=== PATIENT | female | born 1935 | race African-American/Black ===

== ENCOUNTER 2018-02-01 18:46 | Inpatient (IN) | payer MEDICARE, BC ==
[~2018-02-01] VITALS: Ht 162.6 cm; Wt 59.0 kg
[2018-02-02] VITALS (24 sets, daily range): BP systolic 84–152; BP diastolic 28–89
[2018-02-02 00:08] LABS: HEMATOCRIT. 35.6 % (36.0-48.0); HEMOGLOBIN. 12.3 g/dL (12.0-16.0); MEAN CORPUSCULAR HEMOGLOBIN 34.3 pg (28.0-32.0); MEAN CORPUSCULAR VOLUME 99.1 fL (81.0-99.0); MEAN PLATELET VOLUME 7.9 fl (7.4-10.4); PLATELET 266 x1000/uL (130-400); RED BLOOD CELL COUNT 3.59 mill/uL (4.2-5.4); RED CELL DISTRIBUTION WIDTH 14.6 % (11.6-14.6)
[2018-02-02 00:17] LABS: CHLORIDE 109 mEq/L (98-107)
[2018-02-02 00:18] LABS: PROTHROMBIN TIME 9.9 sec (9.1-11.1)
[2018-02-02 00:49] LABS: PLATELET ESTIMATE NORMAL
[2018-02-02] MEDS ORDERED: ENALAPRIL 2.5MG/2ML VIAL 2ML IV ONE (01:15)
[2018-02-02] MEDS ORDERED: LEVETIRACETAM 500MG PREMIX 100 ML IV ONE (01:15)
[2018-02-02] MEDS ORDERED: ACETAMINOPHEN 325MG TABLET PO ONE (02:15)
[2018-02-02] MEDS ORDERED: HYDROCODONE/ACETAMINOPHEN 5/325MG TABLET PO PRN (07:00)
[2018-02-02] MEDS ORDERED: ONDANSETRON HCL 4MG/2ML INJ IV PRN (07:00)
[2018-02-02] MEDS: DEXT 5%/0.45% NACL 1000ML 1,000 ML IV SCH (08:08)
[2018-02-02] MEDS ORDERED: NICARDIPINE 50 MG in SODIUM CHLORIDE 0.9% 230 ML IV PRN (08:30)
[2018-02-02] MEDS ORDERED: AMLODIPINE 5MG TABLET PO SCH (09:00)
[2018-02-02] MEDS ORDERED: LOSA50TA20 PO (09:42)
[2018-02-02] MEDS ORDERED: ZIAC10 PO (09:42)
[2018-02-02] MEDS ORDERED: LORA1TAB PO (09:45)
[2018-02-02] MEDS ORDERED: LENA2.5C PO (09:45)
[2018-02-02] MEDS ORDERED: ATOR40TA70 PO (09:45)
[2018-02-02] MEDS: LEVETIRACETAM 500 MG in SODIUM CHLORIDE 0.9% 100 ML IV SCH ×2 (09:52→20:35)
[2018-02-02 10:41] LABS: HEMOGLOBIN. 10.9 g/dL (12.0-16.0); MEAN CORPUSCULAR HEMOGLOBIN 33.7 pg (28.0-32.0); MEAN CORPUSCULAR VOLUME 98.7 fL (81.0-99.0); PLATELET 238 x1000/uL (130-400); RED BLOOD CELL COUNT 3.25 mill/uL (4.2-5.4)
[2018-02-02] MEDS: LOSARTAN POTASSIUM 50 MG TABLET PO SCH (11:00)
[2018-02-02] MEDS: LORAZEPAM 1MG TABLET PO SCH (11:00)
[2018-02-02 11:10] LABS: CHLORIDE 112 mEq/L (98-107)
[2018-02-02 13:48] LABS: PLATELET ESTIMATE NORMAL
[2018-02-02] MEDS ORDERED: GADOBENATE DIMEGLUMINE 529 MG/ML 10ML IV ONE (17:42)
[2018-02-02] MEDS ORDERED: ATORVASTATIN CALCIUM 40MG TABLET PO SCH (21:00)
[2018-02-03] VITALS: BP 116/90
[2018-02-03 04:00] VITALS: BP 100/48
[2018-02-03 08:00] VITALS: BP 132/50
[2018-02-03] MEDS: LOSARTAN POTASSIUM 50 MG TABLET PO SCH (08:32)
[2018-02-03] MEDS: LORAZEPAM 1MG TABLET PO SCH (08:32)
[2018-02-03] MEDS: LEVETIRACETAM 500 MG in SODIUM CHLORIDE 0.9% 100 ML IV SCH (08:32)
[2018-02-03] MEDS: DEXT 5%/0.45% NACL 1000ML 1,000 ML IV SCH (08:47)
[2018-02-03] MEDS ORDERED: MAGNESIUM HYDROXIDE 400MG/5ML 30ML UDC PO PRN (10:30)
[2018-02-03] MEDS ORDERED: DOCUSATE SODIUM 100MG CAPSULE PO SCH (11:23)
[2018-02-03 12:00] VITALS: BP 123/46
[2018-02-03] MEDS ORDERED: DEXAMETHASONE 4MG/ML 1ML VIAL IV SCH (12:00)
[2018-02-03 12:28] VITALS: BP 123/46
[2018-02-03 14:08] VITALS: BP 123/46
== END 2018-02-03 15:20 | disposition home or self-care (01) | DRG 54 ==
LOC: ER 18:46 → EDBEDREQDT 02-02 01:14 → EDBEDREQ 02-02 01:14 → EDBEDREQTM 02-02 01:14 → EDBEDREQSVC 02-02 01:14 → MICUSO 02-02 02:08 → EDBEDREQTM 02-02 02:09 → EDBEDREQ 02-02 02:09 → EDBEDREQSVC 02-02 02:09 → ENRESERV 02-02 02:44 → 6EST 02-02 21:30
PROVIDERS: ADMIT Hospitalist; ATTEND Hospitalist
DX: D32.9 Benign neoplasm of meninges, unspecified (principal); S06.1X0A Traumatic cerebral edema without loss of consciousness, initial encounter; C90.01 Multiple myeloma in remission; D80.1 Nonfamilial hypogammaglobulinemia; E78.00 Pure hypercholesterolemia, unspecified; K59.00 Constipation, unspecified; S05.12XA Contusion of eyeball and orbital tissues, left eye, initial encounter; G93.89 Other specified disorders of brain; E78.5 Hyperlipidemia, unspecified; I10 Essential (primary) hypertension; J44.9 Chronic obstructive pulmonary disease, unspecified; Z82.49 Family history of ischemic heart disease and other diseases of the circulatory system; Z90.710 Acquired absence of both cervix and uterus; W01.0XXA Fall on same level from slipping, tripping and stumbling without subsequent striking against object, initial encounter; Y93.89 Activity, other specified; Y92.89 Other specified places as the place of occurrence of the external cause; Y99.8 Other external cause status
CPT/HCPCS: 36415; 70486; 70553; 71045; 73562; 80048; 83880; 84484; 93005; 96365; 99291; A9577; J1100; J1953; J3490; J7050

== ENCOUNTER 2021-09-25 12:19 | Inpatient (IN) | payer MEDICARE, BC ==
[~2021-09-25] VITALS: Ht 162.6 cm; Wt 59.0 kg
[~2021-09-25 12:19] MED LIST: ATOR40TA70 PO; BIMA2.5D4 EACHEYE; CYAN100096 PO; DEXA4TAB69 PO; LENA10CA PO; LENA2.5C PO; LORA1TAB PO; LOSA50TA41 PO; ZIAC10 PO
[2021-09-25 13:15] LABS: BASOPHILS % 0.4 % (0.0-2.0); EOSINOPHILS % 0.1 % (0.0-5.0); HEMATOCRIT. 37.3 % (36.0-48.0); HEMOGLOBIN. 12.6 g/dL (12.0-16.0); LYMPHOCYTES % 27.3 % (20.0-50.0); MEAN CORPUSCULAR HEMOGLOBIN 33.4 pg (28.0-32.0); MEAN CORPUSCULAR VOLUME 98.6 fL (81.0-99.0); MEAN PLATELET VOLUME 7.8 fl (7.4-10.4); MONOCYTES % 9.1 % (2.0-8.0); NEUTROPHILS % 63.1 % (40.0-76.0); PLATELET 280 x1000/uL (130-400); RED BLOOD CELL COUNT 3.78 mill/uL (4.2-5.4); RED CELL DISTRIBUTION WIDTH 12.7 % (11.6-14.6)
[2021-09-25 13:24] LABS: CHLORIDE 86 mEq/L (98-107)
[2021-09-25 13:40] LABS: ETHANOL BLOOD < 10 mg/dL
[2021-09-25] MEDS ORDERED: AMLODIPINE 5MG TABLET PO NR (17:30)
[2021-09-25 19:25] VITALS: BP 178/82
[2021-09-25] MEDS ORDERED: DEXT 5%/0.45% NACL 1000ML 1,000 ML IV SCH (19:30)
[2021-09-25 20:00] VITALS: BP 142/64
[2021-09-25] MEDS ORDERED: ACETAMINOPHEN 325MG TABLET PO PRN (21:15)
[2021-09-25] MEDS ORDERED: MAGNESIUM/ALUMINUM HYDROXIDE/SIMETHICONE 30ML UDC PO PRN (21:15)
[2021-09-25] MEDS ORDERED: ONDANSETRON HCL 4MG/2ML INJ IV PRN (21:15)
[2021-09-25] MEDS ORDERED: ZOLPIDEM TARTRATE 5MG TABLET PO PRN (21:15)
[2021-09-25] MEDS ORDERED: IPRATROPIUM/ALBUTEROL 0.5-3(2.5)MG/3ML NEB HHN PRN (21:15)
[2021-09-25] MEDS ORDERED: NA PHOS,M-B/NA PHOS,DI-BA ENEMA 118ML PR PRN (21:15)
[2021-09-25] MEDS ORDERED: DIPHENHYDRAMINE 50MG/ML VIAL IV PRN (21:15)
[2021-09-25] MEDS: DEXT 5%/0.9% NACL 1,000 ML IV SCH (22:31)
[2021-09-26] VITALS: BP 146/63
[2021-09-26 04:00] VITALS: BP 155/57
[2021-09-26 08:00] VITALS: BP 135/55
[2021-09-26] MEDS ORDERED: CLONIDINE 0.1MG TABLET PO PRN (11:45)
[2021-09-26 12:00] VITALS: BP 118/61
[2021-09-26] MEDS: LOSARTAN POTASSIUM 50 MG TABLET PO SCH (12:30)
[2021-09-26 16:00] VITALS: BP 123/48
[2021-09-26] MEDS: DEXT 5%/0.9% NACL 1,000 ML IV SCH (17:15)
[2021-09-26 20:00] VITALS: BP 154/57
[2021-09-26] MEDS: ATORVASTATIN CALCIUM 40MG TABLET PO SCH (20:57)
[2021-09-26 21:42] LABS: CHLORIDE 96 mEq/L (98-107)
[2021-09-26 21:50] LABS: HDL CHOLESTEROL 85 mg/dL (40-59); LDL CHOLESTEROL 167 mg/dL (5-100)
[2021-09-27] VITALS: BP 121/83
[2021-09-27 04:00] VITALS: BP 120/59
[2021-09-27 07:11] LABS: BASOPHILS % 0.3 % (0.0-2.0); EOSINOPHILS % 0.5 % (0.0-5.0); HEMATOCRIT. 33.8 % (36.0-48.0); HEMOGLOBIN. 11.5 g/dL (12.0-16.0); LYMPHOCYTES % 28.8 % (20.0-50.0); MEAN CORPUSCULAR HEMOGLOBIN 33.5 pg (28.0-32.0); MEAN CORPUSCULAR VOLUME 98.9 fL (81.0-99.0); MEAN PLATELET VOLUME 7.9 fl (7.4-10.4); MONOCYTES % 13.5 % (2.0-8.0); NEUTROPHILS % 56.9 % (40.0-76.0); PLATELET 239 x1000/uL (130-400); RED BLOOD CELL COUNT 3.42 mill/uL (4.2-5.4)
[2021-09-27 07:27] LABS: CARCINO EMBRYONIC ANTIGEN 1.4 ng/ml; CHLORIDE 99 mEq/L (98-107)
[2021-09-27 07:33] LABS: TOTAL IRON BINDING CAPACITY 263 ug/dL (250-450)
[2021-09-27 07:40] LABS: FOLIC ACID (FOLATE) SERUM 19.4 ng/mL (>5.38)
[2021-09-27 08:00] VITALS: BP 139/60
[2021-09-27] MEDS: LOSARTAN POTASSIUM 50 MG TABLET PO SCH (08:57)
[2021-09-27] MEDS: PANTOPRAZOLE SODIUM 40 MG/VIAL IV SCH (09:34)
[2021-09-27 12:00] VITALS: BP 133/54
[2021-09-27 16:00] VITALS: BP 127/68
[2021-09-27] MEDS: DEXT 5%/0.9% NACL 1,000 ML IV SCH (18:04)
[2021-09-27 18:49] LABS: CLARITY URINE CLEAR (CLEAR); COLOR URINE YELLOW (YELLOW); KETONES URINE NEGATIVE (NEGATIVE); LEUKOCYTE ESTERASE URINE NEGATIVE (NEGATIVE); NITRITE URINE NEGATIVE (NEGATIVE); OCCULT BLOOD URINE TRACE (NEGATIVE); PH URINE 5.5 (4.5-8.0); PROTEIN URINE NEGATIVE (NEGATIVE); SPECIFIC GRAVITY URINE 1.005 (1.005-1.030); UROBILINOGEN URINE 0.2 E.U./dL (0.2-1.0)
[2021-09-27 19:04] LABS: *AMPHETAMINES SCREEN URINE NEGATIVE (NEGATIVE); *BARBITURATES SCREEN URINE NEGATIVE (NEGATIVE); *BENZODIAZEPINES SCREEN URINE NEGATIVE (NEGATIVE); *COCAINE SCREEN URINE NEGATIVE (NEGATIVE); CANNABINOID URINE SCREEN NEGATIVE (NEGATIVE); METHADONE URINE SCREEN NEGATIVE (NEGATIVE); OPIATES URINE SCREEN NEGATIVE (NEGATIVE); PHENCYCLIDINE URINE SCREEN NEGATIVE (NEGATIVE)
[2021-09-27 20:00] VITALS: BP 129/53
[2021-09-27] MEDS: ATORVASTATIN CALCIUM 40MG TABLET PO SCH (20:15)
[2021-09-28] VITALS: BP 154/55
[2021-09-28 04:00] VITALS: BP 165/55
[2021-09-28 06:48] LABS: BASOPHILS % 0.4 % (0.0-2.0); EOSINOPHILS % 0.4 % (0.0-5.0); HEMATOCRIT. 31.6 % (36.0-48.0); HEMOGLOBIN. 10.8 g/dL (12.0-16.0); LYMPHOCYTES % 33.5 % (20.0-50.0); MEAN CORPUSCULAR HEMOGLOBIN 33.9 pg (28.0-32.0); MEAN CORPUSCULAR VOLUME 98.9 fL (81.0-99.0); MEAN PLATELET VOLUME 7.9 fl (7.4-10.4); MONOCYTES % 12.3 % (2.0-8.0); NEUTROPHILS % 53.4 % (40.0-76.0); PLATELET 229 x1000/uL (130-400); RED BLOOD CELL COUNT 3.19 mill/uL (4.2-5.4); RED CELL DISTRIBUTION WIDTH 12.9 % (11.6-14.6)
[2021-09-28 06:55] LABS: CHLORIDE 103 mEq/L (98-107)
[2021-09-28 08:00] VITALS: BP 167/56
[2021-09-28] MEDS: LOSARTAN POTASSIUM 50 MG TABLET PO SCH (08:16)
[2021-09-28] MEDS: PANTOPRAZOLE SODIUM 40 MG/VIAL IV SCH (09:24)
[2021-09-28 12:00] VITALS: BP 162/53
[2021-09-28] MEDS ORDERED: GADOTERATE MEGLUMINE 5 MMOL/10 ML VIAL IV ONE (13:57)
[2021-09-28 16:00] VITALS: BP 135/60
[2021-09-28 20:00] VITALS: BP 138/55
[2021-09-28] MEDS: ATORVASTATIN CALCIUM 40MG TABLET PO SCH (21:14)
[2021-09-29] VITALS: BP 171/57
[2021-09-29 04:00] VITALS: BP 182/63
[2021-09-29] MEDS: DEXT 5%/0.9% NACL 1,000 ML IV SCH (05:24)
[2021-09-29 06:41] LABS: BASOPHILS % 0.7 % (0.0-2.0); EOSINOPHILS % 0.7 % (0.0-5.0); HEMATOCRIT. 30.4 % (36.0-48.0); HEMOGLOBIN. 10.5 g/dL (12.0-16.0); LYMPHOCYTES % 27.3 % (20.0-50.0); MEAN CORPUSCULAR HEMOGLOBIN 34.3 pg (28.0-32.0); MEAN CORPUSCULAR VOLUME 99.3 fL (81.0-99.0); MONOCYTES % 12.4 % (2.0-8.0); NEUTROPHILS % 58.9 % (40.0-76.0); PLATELET 230 x1000/uL (130-400); RED BLOOD CELL COUNT 3.06 mill/uL (4.2-5.4)
[2021-09-29 06:46] LABS: CHLORIDE 104 mEq/L (98-107)
[2021-09-29 08:00] VITALS: BP 170/62
[2021-09-29] MEDS: LOSARTAN POTASSIUM 50 MG TABLET PO SCH (08:57)
[2021-09-29] MEDS: PANTOPRAZOLE SODIUM 40 MG/VIAL IV SCH (10:39)
[2021-09-29 12:00] VITALS: BP 155/50
[2021-09-29] MEDS: DEXAMETHASONE 4MG TABLET PO SCH (12:03)
[2021-09-29 16:00] VITALS: BP 145/60
[2021-09-29 20:00] VITALS: BP 108/75
[2021-09-29] MEDS: ATORVASTATIN CALCIUM 40MG TABLET PO SCH (21:33)
[2021-09-30] VITALS: BP 157/71
[2021-09-30] MEDS: DEXT 5%/0.9% NACL 1,000 ML IV SCH (01:30)
[2021-09-30 04:00] VITALS: BP 145/63
[2021-09-30 08:00] VITALS: BP 142/58
[2021-09-30 08:00] LABS: BASOPHILS % 0.1 % (0.0-2.0); HEMATOCRIT. 32.5 % (36.0-48.0); HEMOGLOBIN. 11.1 g/dL (12.0-16.0); LYMPHOCYTES % 24.6 % (20.0-50.0); MEAN CORPUSCULAR HEMOGLOBIN 33.8 pg (28.0-32.0); MEAN CORPUSCULAR VOLUME 98.6 fL (81.0-99.0); MEAN PLATELET VOLUME 7.9 fl (7.4-10.4); MONOCYTES % 7.3 % (2.0-8.0); PLATELET 263 x1000/uL (130-400); RED BLOOD CELL COUNT 3.29 mill/uL (4.2-5.4); RED CELL DISTRIBUTION WIDTH 12.7 % (11.6-14.6)
[2021-09-30 08:16] LABS: CHLORIDE 105 mEq/L (98-107)
[2021-09-30] MEDS: LOSARTAN POTASSIUM 50 MG TABLET PO SCH (08:46)
[2021-09-30] MEDS: PANTOPRAZOLE SODIUM 40 MG/VIAL IV SCH (08:46)
[2021-09-30] MEDS: DEXAMETHASONE 4MG TABLET PO SCH (11:42)
[2021-09-30 12:00] VITALS: BP 148/60
[2021-09-30 16:00] VITALS: BP 145/62
[2021-09-30 17:17] VITALS: BP 145/62
== END 2021-09-30 18:48 | DRG 640 ==
LOC: ER 12:19 → 6EST 15:43 → EDBEDREQ 15:54 → EDBEDREQSVC 15:54 → ENRESERV 16:01
PROVIDERS: ADMIT Specialist; ATTEND Specialist
DX: E86.0 Dehydration (principal); G93.41 Metabolic encephalopathy; K86.2 Cyst of pancreas; C90.01 Multiple myeloma in remission; D32.0 Benign neoplasm of cerebral meninges; E87.1 Hypo-osmolality and hyponatremia; K86.9 Disease of pancreas, unspecified; I10 Essential (primary) hypertension; D64.9 Anemia, unspecified; E78.1 Pure hyperglyceridemia; E78.5 Hyperlipidemia, unspecified; K57.30 Diverticulosis of large intestine without perforation or abscess without bleeding; M51.36 Other intervertebral disc degeneration, lumbar region; R19.7 Diarrhea, unspecified; N28.1 Cyst of kidney, acquired; R62.7 Adult failure to thrive; R63.0 Anorexia; R29.6 Repeated falls; K59.00 Constipation, unspecified; Z68.22 Body mass index [BMI] 22.0-22.9, adult; Z88.0 Allergy status to penicillin; Z90.710 Acquired absence of both cervix and uterus; Z79.899 Other long term (current) drug therapy
CPT/HCPCS: 36415; 70553; 71045; 74176; 74183; 76700; 80048; 80053; 80061; 80076; 80305; 80320; 81003; 82105; 82378; 82533; 82607; 82728; 82746; 83540; 83550; 83605; 83930; 84443; 84484; 85025; 86301; 86304; 93005; 95816; 97110; 97116; 97162; 97165; 97166; 97535; 99285; A9577; C9113; J7042; J8540; G0480

== ENCOUNTER 2021-09-30 18:56 | Inpatient (IN) | payer MEDICARE, BC ==
[~2021-09-30] VITALS: Ht 162.6 cm; Wt 59.0 kg
[2021-09-30 19:30] VITALS: BP 171/64
[2021-09-30 20:00] VITALS: BP 171/64
[2021-09-30] MEDS ORDERED: ONDANSETRON HCL 4MG TABLET PO PRN (22:00)
[2021-09-30] MEDS ORDERED: NA PHOS,M-B/NA PHOS,DI-BA ENEMA 118ML PR PRN (22:00)
[2021-09-30] MEDS ORDERED: CLONIDINE 0.1MG TABLET PO PRN (22:00)
[2021-09-30] MEDS ORDERED: DIPHENHYDRAMINE 25MG CAPSULE PO PRN (22:00)
[2021-09-30] MEDS ORDERED: MAGNESIUM/ALUMINUM HYDROXIDE/SIMETHICONE 30ML UDC PO PRN (22:00)
[2021-09-30] MEDS ORDERED: ZOLPIDEM TARTRATE 5MG TABLET PO PRN (22:00)
[2021-09-30] MEDS ORDERED: ACETAMINOPHEN 325MG TABLET PO PRN (22:00)
[2021-09-30] MEDS ORDERED: IPRATROPIUM/ALBUTEROL 0.5-3(2.5)MG/3ML NEB HHN PRN (22:00)
[2021-09-30] MEDS: ATORVASTATIN CALCIUM 40MG TABLET PO SCH (22:53)
[2021-10-01] MEDS: PANTOPRAZOLE 40MG DR TABLET PO SCH (06:11)
[2021-10-01] MEDS ORDERED: PANTOPRAZOLE 40MG DR TABLET PO NR (07:00)
[2021-10-01 08:00] VITALS: BP 147/70
[2021-10-01] MEDS: LOSARTAN POTASSIUM 50 MG TABLET PO SCH (09:24)
[2021-10-01] MEDS: DEXAMETHASONE 4MG TABLET PO SCH (11:00)
[2021-10-01 12:00] VITALS: BP 147/70
[2021-10-01 16:00] VITALS: BP 147/70
[2021-10-01 20:00] VITALS: BP 136/52
[2021-10-01] MEDS ORDERED: ATORVASTATIN CALCIUM 40MG TABLET PO SCH (21:00)
[2021-10-01] MEDS: LEVETIRACETAM 250MG TABLET PO SCH (21:07)
[2021-10-01] MEDS: ATORVASTATIN CALCIUM 40MG TABLET PO SCH (21:07)
[2021-10-02] MEDS: PANTOPRAZOLE 40MG DR TABLET PO SCH (06:08)
[2021-10-02 06:15] LABS: BASOPHILS % 0.1 % (0.0-2.0); EOSINOPHILS % 0.2 % (0.0-5.0); HEMATOCRIT. 29.7 % (36.0-48.0); HEMOGLOBIN. 10.2 g/dL (12.0-16.0); LYMPHOCYTES % 31.4 % (20.0-50.0); MEAN CORPUSCULAR VOLUME 98.6 fL (81.0-99.0); MEAN PLATELET VOLUME 7.7 fl (7.4-10.4); MONOCYTES % 11.5 % (2.0-8.0); NEUTROPHILS % 56.8 % (40.0-76.0); PLATELET 232 x1000/uL (130-400); RED BLOOD CELL COUNT 3.01 mill/uL (4.2-5.4); RED CELL DISTRIBUTION WIDTH 12.5 % (11.6-14.6)
[2021-10-02 06:43] LABS: CHLORIDE 104 mEq/L (98-107)
[2021-10-02 07:02] LABS: HDL CHOLESTEROL 80 mg/dL (40-59); LDL CHOLESTEROL 86 mg/dL (5-100)
[2021-10-02 08:00] VITALS: BP 172/68
[2021-10-02] MEDS ORDERED: POTASSIUM CHLORIDE 20MEQ TABLET SR PO NR (09:15)
[2021-10-02] MEDS: LOSARTAN POTASSIUM 50 MG TABLET PO SCH (09:29)
[2021-10-02] MEDS: LEVETIRACETAM 250MG TABLET PO SCH (09:29)
[2021-10-02] MEDS: DEXAMETHASONE 4MG TABLET PO SCH (12:38)
[2021-10-02 14:58] VITALS: BP 141/75
[2021-10-03] MEDS ORDERED: FAMOTIDINE 20MG TABLET PO SCH (09:00)
== END 2021-10-02 15:40 | disposition left against medical advice (07) | DRG 55 ==
PROVIDERS: ADMIT Psychiatry & Neurology Neurology; ATTEND Specialist
DX: D32.0 Benign neoplasm of cerebral meninges (principal); C90.00 Multiple myeloma not having achieved remission; C25.3 Malignant neoplasm of pancreatic duct; E87.1 Hypo-osmolality and hyponatremia; D64.9 Anemia, unspecified; R29.6 Repeated falls; K57.30 Diverticulosis of large intestine without perforation or abscess without bleeding; K38.8 Other specified diseases of appendix; I10 Essential (primary) hypertension; M51.36 Other intervertebral disc degeneration, lumbar region; E78.1 Pure hyperglyceridemia; K63.5 Polyp of colon; E78.5 Hyperlipidemia, unspecified; M17.11 Unilateral primary osteoarthritis, right knee; E86.0 Dehydration; N28.1 Cyst of kidney, acquired; Z53.29 Procedure and treatment not carried out because of patient's decision for other reasons; R53.81 Other malaise; Z90.710 Acquired absence of both cervix and uterus
CPT/HCPCS: 36415; 80053; 80061; 82378; 83036; 84443; 85025; 92523; 97110; 97112; 97116; 97162; 97166; 97530; 97535; J8540